=== PATIENT | male | born 1960 | race Caucasian/White ===

== ENCOUNTER 2019-10-10 09:44 | Emergency (ER) | payer OTHER ==
[~2019-10-10] VITALS: Ht 188 cm; Wt 127.0 kg
[~2019-10-10 09:44] MED LIST: ABAC300; CEPH500 PO; CLIN300 PO; ENAL20; ENAL5 PO; Flomax0.4 MG PO; GLIM2 PO; IBUP400 PO; INS70/30PN SC; INSDET100; METF500 PO; Norco 5-325 Ta1 EACH PO; OXYACE5T PO; PIOG30 PO; SITA25T2 PO; SULTRIDS PO; Zofran Odt4 MG SL
== END 2019-10-10 11:30 | disposition home or self-care (01) ==
LOC: ER 09:44
DX: S61.102A Unspecified open wound of left thumb with damage to nail, initial encounter (principal); E11.9 Type 2 diabetes mellitus without complications; Z79.4 Long term (current) use of insulin; W19.XXXA Unspecified fall, initial encounter
CPT/HCPCS: 11730; 99282-25

== ENCOUNTER 2020-03-05 05:09 | Emergency (ER) | payer OTHER ==
[~2020-03-05] VITALS: Ht 188 cm; Wt 124.7 kg
[2020-03-05] MEDS ORDERED: Enalapril Malea20 MG PO (06:07)
[2020-03-05] MEDS ORDERED: MINO50 (06:07)
[2020-03-05] MEDS ORDERED: ROSUVASTATIN CA40 MG PO (06:07)
[2020-03-05] MEDS ORDERED: BASAGLAR K100 UNIT/1 (06:07)
[2020-03-05] MEDS ORDERED: JARDIANCE25 MG PO (06:07)
[2020-03-05 07:42] LABS: Source, Urine Voided
[2020-03-05 07:50] LABS: Bilirubin, Urine Neg (Neg); Blood, Urine 1+ (Neg); Glucose Qualitative, Urine 4+ (Neg); Ketones, Urine 1+ (Neg); Leukocyte Esterase, Urine Neg (Neg); Nitrite, Urine Neg (Neg); Protein, Urine 2+ (Neg); Specific Gravity, Urine 1.025 (1.003-1.022); Urobilinogen, Urine NORM (Normal)
[2020-03-05 07:58] LABS: Appearance, Urine Clear (Clear); Bacteria Rare /hpf; Color, Urine Yellow (P-Yellow); Red Blood Cells, Urine 0-2 /hpf (0-2); Squamous Epithelial Cells Few /hpf (Few); White Blood Cells, Urine 0-2 /hpf (0-5)
[2020-03-05 07:59] LABS: Mucus Light (0-Heavy)
[2020-03-05 08:03] LABS: BASOPHILS ABSOLUTE AUTO 0.02 K/mm3 (0.00-0.23); BASOPHILS PERCENT AUTO 0 % (0-2); EOSINOPHILS ABSOLUTE AUTO 0.29 K/mm3 (0.00-0.68); EOSINOPHILS PERCENT AUTO 6 % (0-6); Hematocrit 48.1 % (37.0-53.0); IMMATURE GRAN PERCENT AUTO 0 % (0-1); LYMPHOCYTES ABSOLUTE AUTO 0.95 K/mm3 (0.84-5.20); LYMPHOCYTES PERCENT AUTO 20 % (21-46); MONOCYTES ABSOLUTE AUTO 0.44 K/mm3 (0.16-1.47); MONOCYTES PERCENT AUTO 9 % (4-13); Mean Corpuscular HGB 29.3 pg (26.0-34.0); Mean Corpuscular HGB Conc 33.3 g/dL (31.5-36.5); Mean Corpuscular Volume 88 fL (80-100); Mean Platelet Volume 10.1 fL (9.1-12.4); NEUTROPHILS ABSOLUTE AUTO 2.99 K/mm3 (1.96-9.15); NEUTROPHILS PERCENT AUTO 64 % (41-73); Platelet Count 166 K/mm3 (150-400); RDW Coefficient Variation 13.3 % (11.7-14.2); Red Blood Cell Count 5.46 M/mm3 (4.30-5.90); White Blood Cell Count 4.69 K/mm3 (4.00-11.30)
[2020-03-05 08:18] LABS: Alanine Aminotransfer (ALT/SGP 64 U/L (12-78); Albumin, Blood 4.2 g/dL (3.4-5.0); Albumin/Globulin Ratio 1.4 (0.8-1.8); Alk Phos 78 U/L (50-136); Anion Gap 6 mmol/L (6-16); Aspartate Aminotrans (AST/SGOT 79 U/L (12-37); Bilirubin, Total 0.5 mg/dL (0.1-1.0); Blood Urea Nitrogen 17 mg/dL (8-24); CO2, Blood 27 mmol/L (21-32); Calcium, Blood 8.9 mg/dL (8.5-10.1); Chloride, Blood 109 mmol/L (98-108); Creatinine, Blood 0.77 mg/dL (0.60-1.20); Glomerular Filtration Rate >60 (60-); Glucose, Blood 98 mg/dL (70-99); Potassium, Blood 3.8 mmol/L (3.5-5.5); Sodium, Blood 142 mmol/L (136-145); Total Protein, Blood 7.2 g/dL (6.4-8.2)
[2020-03-05] MEDS ORDERED: PRED20 PO (09:43)
== END 2020-03-05 09:52 | disposition home or self-care (01) ==
LOC: ER 05:09
PROVIDERS: Emergency Medicine
DX: L30.9 Dermatitis, unspecified (principal); R10.9 Unspecified abdominal pain; E11.9 Type 2 diabetes mellitus without complications; Z87.442 Personal history of urinary calculi; Z79.899 Other long term (current) drug therapy; Z79.4 Long term (current) use of insulin
CPT/HCPCS: 74176; 80053; 81001; 85025; 99284-25; J7512

== ENCOUNTER → 2022-08-22 | Outpatient (CLI) | payer OTHER ==
[~2022-08-22] MED LIST changes: +BASAGLAR K100 UNIT/1; +Enalapril Malea20 MG PO; +JARDIANCE25 MG PO; +MINO50; +PRED20 PO; +ROSUVASTATIN CA40 MG PO
== END | disposition home or self-care (01) ==
LOC: LAB 16:29 → LAB SHORT 16:29
DX: R31.0 Gross hematuria (principal)
CPT/HCPCS: 87086

== ENCOUNTER 2023-04-16 06:13 | Day surgery (SDC) | payer OTHER ==
[2023-04-16] VITALS (12 sets, daily range): BP systolic 140–191; BP diastolic 72–97
[~2023-04-16] VITALS: Ht 188 cm; Wt 117.6 kg
--- NOTE | 2023-04-16 07:25 | NUR ---
Ambulatory in Day SurgeryPre-Op teaching done. Pt verbalizes understanding. History, Chart, Medications and Allergies reviewed before start of procedure.Patient confirms NPO status and agrees with scheduled surgery. Patient States Post-Procedure ride home has been arranged.
[2023-04-16] MEDS ORDERED: GABA400 PO (07:42)
[2023-04-16] MEDS ORDERED: TOUJEO SOL300 UNIT/2 (07:42)
[2023-04-16] MEDS ORDERED: NAPR220 (07:43)
--- NOTE | 2023-04-16 10:34 | NUR ---
Patient up to Ambulate independently. Gait steady. Discharge instructions reviewed with patient. Patient verbalizes understanding. Copy given to patient to take home, [facility]. PT REPORTS THAT DR HERNANDEZ SENT PAIN MEDICATION ELECTRONICALLY. Patient States Post-Procedure ride home has been arranged. Discharged via wheelchair to private car for ride home.
== END 2023-04-16 10:34 | disposition home or self-care (01) ==
LOC: ORSCMMR 06:13 → ORD 07:30 → ORSCMMR 10:34
PROVIDERS: Surgery
PROC: 0FT44ZZ Resection of Gallbladder, Percutaneous Endoscopic Approach (ICD-10-PCS; principal; 2023-04-16 07:30)
PROC: BF031ZZ Plain Radiography of Gallbladder and Bile Ducts using Low Osmolar Contrast (ICD-10-PCS; principal; 2023-04-16 07:30)
DX: K80.10 Calculus of gallbladder with chronic cholecystitis without obstruction (principal); I10 Essential (primary) hypertension; E11.9 Type 2 diabetes mellitus without complications; Z87.891 Personal history of nicotine dependence; Z79.4 Long term (current) use of insulin; Z79.899 Other long term (current) drug therapy
CPT/HCPCS: 74300; 82947; 88304; J0690; J1100; J1885; J2405; J2704; J3010; J7120

== ENCOUNTER 2024-12-04 19:34 | Emergency (ER) | payer OTHER, MEDICARE ==
[~2024-12-04] VITALS: Ht 185.4 cm; Wt 104.3 kg
[~2024-12-04 19:34] MED LIST changes: +GABA400 PO; +NAPR220; +TOUJEO SOL300 UNIT/2
[2024-12-04 20:03] VITALS: BP 128/70
[2024-12-04] MEDS ORDERED: AMOCLA875 PO (20:11)
== END 2024-12-04 20:05 | disposition home or self-care (01) ==
LOC: ER 19:34
DX: M70.32 Other bursitis of elbow, left elbow (principal); Y93.9 Activity, unspecified; Z88.0 Allergy status to penicillin; E11.9 Type 2 diabetes mellitus without complications; Z87.442 Personal history of urinary calculi; Z79.4 Long term (current) use of insulin; Z59.89 Other problems related to housing and economic circumstances
CPT/HCPCS: 99282